=== PATIENT | male | born 1970 ===

== ENCOUNTER → 2021-10-04 | Outpatient (CLI) | payer OTHER | LOC: COL.VAS 13:09 | DX: N18.6 End stage renal disease (principal) ==

== ENCOUNTER 2022-01-08 10:06 | Day surgery (SDC) | payer OTHER, MEDICARE ==
[~2022-01-08] VITALS: Ht 172.7 cm; Wt 93.0 kg
[2022-01-08] VITALS (7 sets, daily range): BP systolic 121–150; BP diastolic 79–89; PULSE 68–71; TEMP 97.7
[2022-01-08] MEDS ORDERED: DEMADEX100 MG PO (10:30)
[2022-01-08] MEDS ORDERED: COREG12.5 MG PO (10:32)
[2022-01-08] MEDS ORDERED: APRESOLINE 25MG25 MG PO (10:32)
[2022-01-08] MEDS ORDERED: NORVASC 10MG10 MG PO (10:34)
[2022-01-08] MEDS ORDERED: BASAGLAR K100 UNIT/1 SQ (10:34)
[2022-01-08] MEDS ORDERED: HUMALOG PEN100 U/ML SQ (10:37)
--- NOTE | 2022-01-08 13:19 | NUR ---
See merge for all medication, assessment, intervention, and vital sign times.
--- NOTE | 2022-01-08 15:05 | NUR ---
I reviewed dc instructions r/t moderate sedation with pt, who verbalized understanding. IV dc'd with cath intact, dressing applied. Pt was ambulatory to exit with no problem, I walked with pt to exit with pt and his .
== END 2022-01-08 18:01 | disposition home or self-care (01) ==
LOC: SDCO 10:06 → COL.CAR 10:30 → SDCO 18:01
DX: T82.858A Stenosis of other vascular prosthetic devices, implants and grafts, initial encounter (principal)
CPT/HCPCS: C1769; J2250; J3010

== ENCOUNTER 2022-01-29 10:29 | Day surgery (SDC) | payer OTHER, MEDICARE ==
[~2022-01-29] VITALS: Ht 172.7 cm; Wt 93.4 kg
[2022-01-29] VITALS (7 sets, daily range): BP systolic 118–158; BP diastolic 48–79; PULSE 64–72; TEMP 97.2–97.8
[~2022-01-29 10:29] MED LIST: APRESOLINE 25MG25 MG PO; BASAGLAR K100 UNIT/1 SQ; COREG12.5 MG PO; DEMADEX100 MG PO; HUMALOG PEN100 U/ML SQ; NORVASC 10MG10 MG PO
[2022-01-29 11:48] LABS: CALCIUM 7.7 mg/dL (8.4-10.2); CREATININE, serum 5.64 mg/dL (0.72-1.25); POTASSIUM 5.1 mmol/L (3.5-4.5)
[2022-01-29] MEDS ORDERED: NORCO 325 MG-51 TAB PO (15:04)
--- NOTE | 2022-01-29 16:53 | NUR ---
1502 RETURNS TO ROOM 5 FROM OR. DROWSY, AROUSES EASILY TO VERBAL STIMULI. FAMILIARIZED WITH SURROUNDINGS. RESP CLEAR, SPONTANEOUS. MONITORS APPLIED. VITAL SIGNS OBTAINED. O2 AT 2L/NC. INCISION LEFT UPPER ARM WITHOUT EDEMA, REDNESS OR DRAINAGE. THRILL PALPATED, BRUIT AUSCULTATED. 1530 PATIENT ALERT. O2 OFF. 1545 TOLERATES PO APPLESAUCE AND WATER WITHOUT NAUSEA. 1635 DISCHARGE INSTRUCTIONS REVIEWED WITH PATIENT AND . COPY OF INSTRUCTIONS AND EDUCATIONAL MATERIALS PROVIDED. 1645 SITS ON EDGE OF CART DRESSES SELF WITH MINIMAL ASSIST FROM .
== END 2022-01-29 16:53 | disposition home or self-care (01) ==
LOC: SDCO 10:29
PROVIDERS: Nurse Anesthetist, Certified Registered
DX: N18.6 End stage renal disease (principal)
CPT/HCPCS: A4648; C1768; J0690; J1644; J2250; J2704; J3010; J7120